=== PATIENT | male | born 1965 | race Caucasian/White ===

== ENCOUNTER → 2020-04-17 16:00 | Outpatient (BNVA) | payer OTHER, SELFPAY | PROVIDERS: Family Provider Family Medicine; PCP Family Medicine; Visit Provider Family Medicine | DX: M10.9 Gout, unspecified (principal); H60.311 Diffuse otitis externa, right ear | CPT/HCPCS: 84550 ==

== ENCOUNTER → 2020-06-10 16:46 | Outpatient (BNVA) | payer OTHER, SELFPAY | PROVIDERS: Family Provider Family Medicine; PCP Family Medicine; Visit Provider Family Medicine | DX: M10.9 Gout, unspecified (principal); M79.673 Pain in unspecified foot; Z20.818 Contact with and (suspected) exposure to other bacterial communicable diseases; H60.311 Diffuse otitis externa, right ear; H93.90 Unspecified disorder of ear, unspecified ear | CPT/HCPCS: 84550; 87635 ==

== ENCOUNTER → 2020-07-15 08:32 | Outpatient (BNVA) | payer OTHER, SELFPAY | PROVIDERS: Family Provider Family Medicine; PCP Family Medicine; Referring Provider Family Medicine; Visit Provider Podiatrist Foot & Ankle Surgery | DX: M79.672 Pain in left foot (principal) | CPT/HCPCS: 73630 ==

== ENCOUNTER → 2021-05-28 09:44 | Outpatient (BNVA) | payer OTHER, SELFPAY | PROVIDERS: Family Provider Family Medicine; PCP Family Medicine; Visit Provider Family Medicine | DX: Z00.00 Encounter for general adult medical examination without abnormal findings (principal); M10.9 Gout, unspecified; M79.673 Pain in unspecified foot; U07.1 COVID-19 | CPT/HCPCS: 81000 ==

== ENCOUNTER 2021-10-15 02:22 | Outpatient (RCR) | payer OTHER, SELFPAY | END 2021-11-10 23:59 | disposition home or self-care (01) | LOC: GPT 02:22 | PROVIDERS: PCP Family Medicine; Visit Provider Orthopaedic Surgery | DX: Z47.89 Encounter for other orthopedic aftercare (principal) | CPT/HCPCS: 97110; 97140; 97161; G0283 ==

== ENCOUNTER 2021-11-11 06:00 | Outpatient (RCR) | payer OTHER, SELFPAY | END 2021-12-08 23:59 | disposition home or self-care (01) | LOC: GPT 06:00 | PROVIDERS: PCP Family Medicine; Visit Provider Orthopaedic Surgery | DX: Z47.89 Encounter for other orthopedic aftercare (principal) | CPT/HCPCS: 97110; 97140; G0283 ==

== ENCOUNTER 2021-12-09 06:00 | Outpatient (RCR) | payer OTHER, SELFPAY | END 2021-12-10 23:59 | disposition home or self-care (01) | LOC: GPT 06:00 | PROVIDERS: PCP Family Medicine; Visit Provider Orthopaedic Surgery | DX: Z47.89 Encounter for other orthopedic aftercare (principal) | CPT/HCPCS: 97110 ==

== ENCOUNTER → 2024-08-21 13:49 | Outpatient (BNVA) | payer OTHER, SELFPAY | PROVIDERS: PCP Family Medicine; Visit Provider Nurse Practitioner Family | DX: M25.562 Pain in left knee (principal) | CPT/HCPCS: 73562 ==

== ENCOUNTER 2024-11-11 06:30 | Outpatient (RCR) | payer OTHER, SELFPAY | END 2024-12-08 23:59 | disposition home or self-care (01) | LOC: GPT 06:30 | PROVIDERS: Visit Provider Orthopaedic Surgery | DX: Z47.1 Aftercare following joint replacement surgery (principal); Z96.651 Presence of right artificial knee joint | CPT/HCPCS: 97110; 97112; 97140; 97162; 97530 ==

== ENCOUNTER 2024-12-09 06:00 | Outpatient (RCR) | payer OTHER, SELFPAY | END 2025-01-08 23:59 | disposition home or self-care (01) | LOC: GPT 06:00 | PROVIDERS: Visit Provider Orthopaedic Surgery | DX: Z47.1 Aftercare following joint replacement surgery (principal); Z96.651 Presence of right artificial knee joint | CPT/HCPCS: 97110; 97140; 97530 ==

== ENCOUNTER 2025-01-09 06:00 | Outpatient (RCR) | payer OTHER, SELFPAY | END 2025-02-07 23:59 | disposition home or self-care (01) | LOC: GPT 06:00 | PROVIDERS: Visit Provider Orthopaedic Surgery | DX: Z47.1 Aftercare following joint replacement surgery (principal); Z96.651 Presence of right artificial knee joint | CPT/HCPCS: 97110; 97140; 97530 ==

== ENCOUNTER 2025-02-08 06:00 | Outpatient (RCR) | payer OTHER, SELFPAY | END 2025-02-28 10:18 | disposition home or self-care (01) | LOC: GPT 06:00 | PROVIDERS: Visit Provider Orthopaedic Surgery | DX: Z47.1 Aftercare following joint replacement surgery (principal); Z96.651 Presence of right artificial knee joint | CPT/HCPCS: 97110; 97140; 97164; 97530 ==